=== PATIENT | female | born 1990 | race Two or more races ===

== ENCOUNTER 2017-03-29 14:34 | Emergency (ER) | payer OTHER ==
[~2017-03-29] VITALS: Ht 170.2 cm; Wt 59.0 kg
--- NOTE | 2017-03-29 15:02 | Emergency Room Report ---
History of Present Illness General Chief Complaint: Nausea, Vomiting, and Diarrhea Source: Patient Present Illness HPI 26-year-old female presents to the emergency department complaining of acute onset of nausea, vomiting and diarrhea times one day. Patient states she woke up at 1 AM with her symptoms she denies blood in the vomit or stool she estimates approximately 20 episodes of vomiting that she describes as first food and then progressively became stomach acid. She reports 5 episodes of loose stool. Denies recent travel or ill contacts with similar symptoms. Patient states that for dinner she ate at a new seafood restaurant and she attributes it that may be the cause of her symptoms. Patient denies fevers, chills, . Since that she just started her period last night. 4/ 10 in severity abdominal pain.Denies CP, Palpitations, LOC, AMS, dizziness, Changes in Vision, Sensation, paresthesias, or a sudden severe headache. Allergies: Coded Allergies: No Known Allergies (Unverified , 03/29/17) Patient History Past Medical History: see triage record Past Surgical History: none Pertinent Family History: none Last Menstrual Period: 03/29/17 Immunizations: UTD Reviewed Nursing Documentation: PMH: Agreed, PSxH: Agreed Nursing Documentation-PMH Past Medical History: No Stated History Review of Systems All Other Systems: negative except mentioned in HPI Physical Exam Vital Signs Date Time Temp Pulse Resp B/P (MAP) Pulse Ox O2 Delivery O2 Flow Rate FiO2 03/29/17 14:38 97.9 58 18 107/65 98 Room Air 97.9 Sp02 EP Interpretation: reviewed, normal General Appearance: alert, GCS 15, non-toxic, mild distress Head: normocephalic, atraumatic ENT: hearing grossly normal, normal voice Neck: full range of motion Respiratory: lungs clear, normal breath sounds, speaking full sentences Cardiovascular #1: regular rate, rhythm Gastrointestinal: normal bowel sounds - hyperactive BS in all 4 quadrants, non tender, soft Rectal: deferred Genitourinary: normal inspection, no CVA tenderness Musculoskeletal: back normal, gait/station normal, normal range of motion, non- tender Neurologic: alert, oriented x3, responsive, motor strength/tone normal, sensory intact, speech normal, grossly normal Psychiatric: judgement/insight normal Skin: normal color, no rash, warm/dry, well hydrated Medical Decision Making PA Attestation Dr. Gonsalez is my supervising Physician whom patient management has been discussed with. Diagnostic Impression: Primary Impression: Nausea, vomiting, and diarrhea ER Course 26-year-old female presents to the emergency department complaining of acute onset of nausea, vomiting and diarrhea times one day. Patient states she woke up at 1 AM with her symptoms she denies blood in the vomit or stool she estimates approximately 20 episodes of vomiting that she describes as first food and then progressively became stomach acid. She reports 5 episodes of loose stool. Denies recent travel or ill contacts with similar symptoms. Patient states that for dinner she ate at a new seafood restaurant and she attributes it that may be the cause of her symptoms. Patient denies fevers, chills, . Since that she just started her period last night. 4/ 10 in severity abdominal pain.Denies CP, Palpitations, LOC, AMS, dizziness, Changes in Vision, Sensation, paresthesias, or a sudden severe headache. Ddx considered but are not limited to Diverticulitis, acute appy, diarrhea,UC, PUD, GE, pancreatitis, gallstone Vital signs: are WNL, pt. is afebrile H&PE are most consistent with GE ORDERS: -CBC, CMP, lipase: unremarkable , electrolytes ok. -Urine Hcg: Negative ED INTERVENTIONS: -- 1000NS, - zofran 4mg. - GI Cocktail PO d/w pt. conservative treatment, and to follow up with a primary care provider. pt given a list of primary care clinics for follow up. d/w pt. to return to the ED with worsening or new symptoms. DISCHARGE: At this time pt. is stable for d/c to home. Will provide printed patient care instructions, and any necessary prescriptions. Care plan and follow up instructions have been discussed with the patient prior to discharge. Labs Test 03/29/17 15:10 White Blood Count 12.1 K/UL (4.8-10.8) Red Blood Count 4.31 M/UL (4.20-5.40) Hemoglobin 13.9 G/DL (12.0-16.0) Hematocrit 41.7 % (37.0-47.0) Mean Corpuscular Volume 97 FL (80-99) Mean Corpuscular Hemoglobin 32.3 PG (27.0-31.0) Mean Corpuscular Hemoglobin Concent 33.4 G/DL (32.0-36.0) Red Cell Distribution Width 12.3 % (11.6-14.8) Platelet Count 238 K/UL (150-450) Mean Platelet Volume 7.4 FL (6.5-10.1) Neutrophils (%) (Auto) 88.4 % (45.0-75.0) Lymphocytes (%) (Auto) 4.7 % (20.0-45.0) Monocytes (%) (Auto) 5.9 % (1.0-10.0) Eosinophils (%) (Auto) 0.4 % (0.0-3.0) Basophils (%) (Auto) 0.6 % (0.0-2.0) Urine HCG, Qualitative Negative Sodium Level 137 MMOL/L (136-145) Potassium Level 3.6 MMOL/L (3.5-5.1) Chloride Level 102 MMOL/L (98-107) Carbon Dioxide Level 29 MMOL/L (21-32) Anion Gap 7 mmol/L (5-15) Blood Urea Nitrogen 11 mg/dL (7-18) Creatinine 0.7 MG/DL (0.55-1.30) Estimat Glomerular Filtration Rate > 60 mL/min (>60) Glucose Level 91 MG/DL (74-106) Calcium Level 9.1 MG/DL (8.5-10.1) Total Bilirubin 0.7 MG/DL (0.2-1.0) Aspartate Amino Transf (AST/SGOT) 28 U/L (15-37) Alanine Aminotransferase (ALT/SGPT) 12 U/L (12-78) Alkaline Phosphatase 52 U/L (46-116) Total Protein 7.6 G/DL (6.4-8.2) Albumin 3.8 G/DL (3.4-5.0) Globulin 3.8 g/dL Albumin/Globulin Ratio 1.0 (1.0-2.7) Last Vital Signs Date Time Temp Pulse Resp B/P (MAP) Pulse Ox O2 Delivery O2 Flow Rate FiO2 03/29/17 14:38 97.9 58 18 107/65 98 Room Air 97.9 Disposition: HOME, SELF-CARE Condition: Stable Scripts Ranitidine Hcl* (ZANTAC*) 150 Mg Tablet 150 MG ORAL TWICE A DAY for 7 Days, #14 TAB Prov: Desire Galvan 03/29/17 Dicyclomine Hcl* (BENTYL*) 10 Mg Capsule 10 MG ORAL FOUR TIMES A DAY, #12 CAP Prov: Desire Galvan 03/29/17 Ondansetron Odt* (ZOFRAN ODT*) 4 Mg Tab.rapdis 4 MG ORAL Q6H Y for Nausea & Vomiting, #20 TAB Prov: Desire Galvan 03/29/17 Patient Instructions: DIET, Vomiting or Diarrhea [6yr-Adult] Additional Instructions: Take medications as directed. Follow up with a Primary Care Provider in 3-5 days, even if your symptoms have resolved. --Please review list of primary care clinics, if you do not already have a primary care provider Return sooner to ED if new symptoms occur, or current symptoms become worse. - Please note that this Emergency Department Report was dictated using [employer] bar machine operator technology software, occasionally this can lead to erroneous entry secondary to interpretation by the dictation equipment. Desire Galvan Mar 29, 2017 15:02
[2017-03-29 15:21] LABS: HEMATOCRIT 41.7 % (37.0-47.0); HEMOGLOBIN 13.9 G/DL (12.0-16.0); MEAN CORPUSCULAR VOLUME 97 FL (80-99); PLATELET COUNT 238 K/UL (150-450); RED BLOOD COUNT 4.31 M/UL (4.20-5.40); RED CELL DISTRIBUTION WIDTH 12.3 % (11.6-14.8); WHITE BLOOD COUNT 12.1 K/UL (4.8-10.8)
[2017-03-29 15:26] LABS: BASOPHILS % (AUTO) 0.6 % (0.0-2.0); EOSINOPHILS % (AUTO) 0.4 % (0.0-3.0); LYMPHOCYTES % (AUTO) 4.7 % (20.0-45.0); MONOCYTES % (AUTO) 5.9 % (1.0-10.0); NEUTROPHILS % (AUTO) 88.4 % (45.0-75.0)
[2017-03-29 15:33] LABS: ANION GAP 7 mmol/L (5-15); BLOOD UREA NITROGEN 11 mg/dL (7-18); CALCIUM 9.1 MG/DL (8.5-10.1); CARBON DIOXIDE 29 MMOL/L (21-32); CHLORIDE 102 MMOL/L (98-107); CREATININE 0.7 MG/DL (0.55-1.30); POTASSIUM 3.6 MMOL/L (3.5-5.1); SODIUM 137 MMOL/L (136-145)
[2017-03-29 15:38] LABS: ALANINE AMINOTRANSFERASE 12 U/L (12-78); ALBUMIN 3.8 G/DL (3.4-5.0); ALKALINE PHOSPHATASE 52 U/L (46-116); ASPARTATE AMINO TRANSFERASE 28 U/L (15-37); BILIRUBIN,TOTAL 0.7 MG/DL (0.2-1.0)
[2017-03-29] MEDS ORDERED: Dicyclomine HCl 10mg/5ml oral soln ORAL ONE (16:15)
[2017-03-29] MEDS ORDERED: Lidocaine 2% Visc 15ml soln ORAL ONE (16:15)
[2017-03-29] MEDS ORDERED: Mylanta II UD 30ml ORAL ONE (16:15)
[2017-03-29] MEDS ORDERED: ZANTAC150 MG ORAL (16:16)
[2017-03-29] MEDS ORDERED: ZOFRAN ODT4 MG ORAL (16:16)
[2017-03-29] MEDS ORDERED: BENTYL10 MG ORAL (16:16)
[2017-03-29 16:43] VITALS: BP 105/60
[2017-03-29 16:44] VITALS: BP 105/60
== END 2017-03-29 16:46 | disposition home or self-care (01) ==
LOC: EMR 15:25
DX: R11.2 Nausea with vomiting, unspecified (principal); R19.7 Diarrhea, unspecified
CPT/HCPCS: 36415; 80053; 81025; 85025; 96361; 96374; 99284; J2405

== ENCOUNTER 2019-10-29 17:35 | Emergency (ER) | payer OTHER ==
[~2019-10-29] VITALS: Ht 170.2 cm; Wt 63.5 kg
[~2019-10-29 17:35] MED LIST: BENTYL10 MG ORAL; ZANTAC150 MG ORAL; ZOFRAN ODT4 MG ORAL
[2019-10-29 17:37] VITALS: BP 117/76
--- NOTE | 2019-10-29 17:47 | NUR ---
ED Nurse Note: Patient from home walked in due to right thigh and right lower leg insect bites since . Denies itching but noted bumps on thighs. AAO x4 and ambulatory.
--- NOTE | 2019-10-29 17:55 | Emergency Room Report ---
History of Present Illness General Chief Complaint: Animal Bite Source: Patient Present Illness HPI The patient presents with several skin lesions that have developed over a week. She says somebody else was sleeping in her bed and there was sand there. She is not sure if these are spider bites. They have been getting larger and they are itching. She denies any fevers or chills. She has been using alcohol. This is not been helping. She denies any pain. Her tetanus is up-to-date. She does not believe she is at this time. She denies exposure to COVID-19 positive contacts. Allergies: Coded Allergies: No Known Allergies (Unverified , 03/29/17) COVID-19 Screening Contact w/high risk pt: No Experienced COVID-19 symptoms?: No COVID-19 Testing performed DENTAL AMALGAM PROCESSOR: No Patient History Past Medical History: see triage record Social History: Reports: smoking Social History Narrative Here with her children. Last Menstrual Period: 10/06/19 Nursing Documentation-[facility] Past Medical History: No Stated History Review of Systems Constitutional: Reports: see HPI Genitourinary: Reports: see HPI Skin: Reports: see HPI Physical Exam Vital Signs Date Time Temp Pulse Resp B/P (MAP) Pulse Ox O2 Delivery O2 Flow Rate FiO2 10/29/19 17:37 98.2 54 19 117/76 (90) 100 Room Air Sp02 EP Interpretation: reviewed, normal General Appearance: well appearing, no apparent distress, GCS 15 Head: normocephalic Eyes: bilateral eye normal inspection, bilateral eye PERRL ENT: moist mucus membranes Neck: normal inspection Respiratory: normal inspection Cardiovascular #1: regular rate, rhythm Cardiovascular #2: 2+ radial (R) Gastrointestinal: normal inspection Musculoskeletal: gait/station normal Neurologic: alert, grossly normal Psychiatric: mood/affect normal Skin: normal color, warm/dry, other - Hyperpigmented macules on thighs x2. No fluctuance. No excoriations. No erythema Medical Decision Making Diagnostic Impression: Primary Impression: Tinea corporis ER Course Patient presents with itchy skin lesions for 1 week. Differential includes cellulitis, tinea corporis, reaction to bites amongst others. Based on the clinical exam tinea corporis is the working diagnosis. Discussed findings and treatment plan with patient. Patient stable for outpatient observation and treatment. Last Vital Signs Date Time Temp Pulse Resp B/P (MAP) Pulse Ox O2 Delivery O2 Flow Rate FiO2 10/29/19 18:06 98.5 65 16 122/78 99 Room Air Status: improved Disposition: HOME, SELF-CARE Condition: Improved Scripts Diphenhydramine Hcl* (BENADRYL*) 25 Mg Capsule 25 MG ORAL Q6H PRN for Itching, #14 CAP Prov: Jacky Muro MD 10/29/19 Tolnaftate (Tolnaftate) 15 Gm Cream..g. 1 APPLIC TOPIC BID, #15 APPLIC Prov: Jacky Muro MD 10/29/19 Bacitracin (Bacitracin) 28.4 Gm Oint...g. 1 APPLIC TOPIC BID, #20 GM Prov: Jacky Muro MD 10/29/19 Jacky Muro MD Oct 29, 2019 17:55
[2019-10-29] MEDS ORDERED: BACITRACIN15 GM TOPIC (17:58)
[2019-10-29] MEDS ORDERED: BENADRYL25 MG ORAL (17:58)
[2019-10-29] MEDS ORDERED: TINACTIN 1%1 APPLIC TOPIC (17:58)
[2019-10-29] MEDS ORDERED: Bacitracin Oint UD TOPIC ONE (18:00)
[2019-10-29 18:06] VITALS: BP 122/78
--- NOTE | 2019-10-29 18:06 | NUR ---
ER DISCHARGE NOTE: Patient is cleared to be discharged per ERMD, pt is aox4, on room air, with stable vital signs. pt was given dc and prescription instructions, pt was able to verbalize understanding, pt id band removed. pt is able to ambulate with steady gait. pt took all belongings.
== END 2019-10-29 18:06 | disposition home or self-care (01) ==
LOC: EMR 17:55
DX: B35.4 Tinea corporis (principal); F17.200 Nicotine dependence, unspecified, uncomplicated
CPT/HCPCS: 99282